=== PATIENT | female | born 1980 | race Caucasian/White ===

== ENCOUNTER → 2018-06-14 09:27 | Outpatient (CLI) | payer OTHER, SELFPAY ==
[2018-06-14 10:38] LABS: Basophils % 0.6 % (0.1-2.0); Eosinophils # 0.2 K/mm3 (0.0-0.4); Eosinophils % 3.2 % (0.1-12.0); Hematocrit 40.8 % (37.0-47.0); Hemoglobin 13.8 g/dL (12.2-16.2); Lymphocytes # 1.1 K/mm3 (0.7-4.5); Lymphocytes % 21.4 K/mm3 (10-50); Mean Corpuscular HGB Conc 33.9 g/dL (31.8-35.4); Mean Corpuscular Hemoglobin 29.4 pg (27.0-31.2); Mean Corpuscular Volume 86.6 fl (81-99); Monocytes # 0.2 K/mm3 (0.1-1.0); Neutrophils # 3.8 K/mm3 (1.8-7.8); Neutrophils % 70.9 % (37.0-80.0); Platelet Count 235 K/mm3 (142-424); Red Blood Count 4.71 M/mm3 (4.20-5.40); Red Cell Distribution Width 12.7 % (11.5-17.5); White Blood Count 5.3 K/mm3 (4.8-10.8)
[2018-06-14 11:19] LABS: Alanine Aminotransferase 25 U/L (12-78); Albumin Level 3.6 gm/dL (3.4-5.0); Albumin/Globulin Ratio 1.1 (1.1-1.8); Alkaline Phosphatase 196 U/L (46-116); Anion Gap 8.9 mEq/L (5-15); Aspartate Amino Transferase 12 U/L (15-37); Bilirubin,Total 0.3 mg/dL (0.2-1.0); Blood Urea Nitrogen 7 mg/dL (7-18); Calcium 8.7 mg/dL (8.5-10.1); Carbon Dioxide 33 mmol/L (21.0-32.0); Chloride 104 mmol/L (98-107); Creatinine,Serum 0.74 mg/dL (0.55-1.02); Estimated Glomerular Filt Rate 87 ml/min (>60); GFR (African American) 106 ML/MIN (>60); Globulin 3.2 gm/dl (1.3-3.2); Glucose 114 mg/dL (74-106); Potassium 3.9 mmoL/L (3.5-5.1); Sodium 142 mmol/L (136-145); Total Protein,Serum 6.8 gm/dL (6.4-8.2)
== END ==
PROVIDERS: PCP Nurse Practitioner Family; Visit Provider Obstetrics & Gynecology
DX: D64.9 Anemia, unspecified (principal)
CPT/HCPCS: 36415; 80053; 85025

== ENCOUNTER → 2018-07-15 09:33 | Outpatient (CLI) | payer OTHER, SELFPAY ==
--- NOTE | 2018-07-15 09:41 | CT_ITS ---
CT abdomen pelvis wo/w con CLINICAL INDICATION: Abdominal wall hernia ITS.REASON: hernia ORDERING PHYSICIAN: Lenin Awan MD PATIENT AGE: 38 years COMPARISON: None TECHNIQUE: Axial images obtained without and with IV contrast with sagittal and coronal reformats. All CT scans at the facility use one or more dose reduction, viz: automated exposure control, ma/kV adjustment per patient size (including targeted exams where dose is matched to indication, i.e. head), or iterative reconstruction technique. PROCEDURE: Oral Contrast: None IV Contrast: 75 mL of Isovue-370. FINDINGS: Lung bases are clear. Small hiatal hernia. 5 mm isodensity right hepatic lobe laterally and may be due to small cyst. 1.5 x 1.3 cm isodensity in the region of the falciform ligament and could be due to small cyst or focal fatty infiltration. The spleen, adrenal glands, pancreas, and kidneys have an unremarkable appearance without and with contrast. No radio opaque gallstones. There is a small lymph node posterior to the portal vein at 1 x 0.6 cm. Small ventral abdominal wall hernia is present containing fat. This is 2.9 cm above the umbilicus and just to the right of midline. The opening of the hernia measures 2 cm with the hernia sac measures 4.6 x 4 cm. No evidence of appendicitis, intestinal obstruction, free air, or diverticulitis. No pelvic mass abnormal fluid collection or focal inflammatory changes evident within the pelvis No acute bony anomalies. Small sclerotic focus is present in the left ilium centrally and may be due to a small bone island IMPRESSION: 1. Small ventral abdominal wall hernia containing fat as described above 2.9 cm superior to the umbilicus 2. Possible hepatic cysts which may be confirmed with ultrasound if clinically warranted
== END ==
PROVIDERS: Visit Provider Obstetrics & Gynecology
DX: K43.9 Ventral hernia without obstruction or gangrene (principal)
CPT/HCPCS: 74170; 74178; Q9967

== ENCOUNTER → 2018-08-05 10:09 | Outpatient (CLI) | payer OTHER, SELFPAY ==
[2018-08-05 10:13] LABS: Microscopic, Urine URINE MICROSCOPIC (MICROSCOPIC)
[2018-08-05 10:50] LABS: Appearance,Urine CLEAR (Clear); Bilirubin,Urine Negative (Negative); Blood, Urine Negative (Negative); Color,Urine YELLOW (Yellow); Glucose,Urine (UA) Negative (Negative); Ketones,Urine Negative (Negative); Leukocyte Esterase,Urine Negative (Negative); Nitrate,Urine Negative (Negative); Protein,Urine Negative (Negative); Urobilinogen,Urine 0.2 EU/dl (0.2)
[2018-08-05 10:52] LABS: Urine Pregnancy, HCG Qual. Negative (Negative)
[2018-08-05 10:58] LABS: Bacteria,Urine 1+ /lpf; WBC,Urine Occasional #/hpf (0-3)
[2018-08-05 11:31] LABS: Alanine Aminotransferase 23 U/L (12-78); Albumin Level 3.6 gm/dL (3.4-5.0); Alkaline Phosphatase 200 U/L (46-116); Anion Gap 10.1 mEq/L (5-15); Aspartate Amino Transferase 13 U/L (15-37); Bilirubin,Total 0.4 mg/dL (0.2-1.0); Blood Urea Nitrogen 8 mg/dL (7-18); Carbon Dioxide 32 mmol/L (21.0-32.0); Chloride 101 mmol/L (98-107); Creatinine,Serum 0.73 mg/dL (0.55-1.02); Estimated Glomerular Filt Rate 89 ml/min (>60); GFR (African American) 107 ML/MIN (>60); Globulin 3.5 gm/dl (1.3-3.2); Glucose 120 mg/dL (74-106); Potassium 4.1 mmoL/L (3.5-5.1); Sodium 139 mmol/L (136-145); Total Protein,Serum 7.1 gm/dL (6.4-8.2)
[2018-08-05 11:46] LABS: Basophils % 0.6 % (0.1-2.0); Eosinophils # 0.2 K/mm3 (0.0-0.4); Eosinophils % 2.3 % (0.1-12.0); Hematocrit 46.7 % (37.0-47.0); Hemoglobin 14.9 g/dL (12.2-16.2); Lymphocytes # 1.2 K/mm3 (0.7-4.5); Lymphocytes % 16.2 K/mm3 (10-50); Mean Corpuscular HGB Conc 31.9 g/dL (31.8-35.4); Mean Corpuscular Hemoglobin 28.3 pg (27.0-31.2); Mean Corpuscular Volume 88.6 fl (81-99); Mean Platelet Volume 7.1 fl (7.4-10.4); Monocytes # 0.2 K/mm3 (0.1-1.0); Neutrophils # 5.9 K/mm3 (1.8-7.8); Neutrophils % 77.9 % (37.0-80.0); Platelet Count 296 K/mm3 (142-424); Red Blood Count 5.27 M/mm3 (4.20-5.40); Red Cell Distribution Width 12.9 % (11.5-17.5); White Blood Count 7.6 K/mm3 (4.8-10.8)
== END ==
PROVIDERS: Visit Provider Obstetrics & Gynecology
DX: Z01.818 Encounter for other preprocedural examination (principal); Z30.2 Encounter for sterilization
CPT/HCPCS: 36415; 80053; 81001; 81025; 85025

== ENCOUNTER → 2018-11-18 12:03 | Outpatient (CLI) | payer OTHER, SELFPAY ==
[2018-11-18 12:45] LABS: Basophils % 0.5 % (0.1-2.0); Eosinophils # 0.2 K/mm3 (0.0-0.4); Eosinophils % 2.5 % (0.1-12.0); Hematocrit 40.7 % (37.0-47.0); Hemoglobin 13.4 g/dL (12.2-16.2); Lymphocytes # 1.1 K/mm3 (0.7-4.5); Lymphocytes % 17.2 % (10-50); Mean Corpuscular HGB Conc 32.9 g/dL (31.8-35.4); Mean Corpuscular Hemoglobin 28.7 pg (27.0-31.2); Mean Corpuscular Volume 87.2 fl (81-99); Mean Platelet Volume 6.9 fl (7.4-10.4); Monocytes # 0.2 K/mm3 (0.1-1.0); Neutrophils % 76.8 % (37.0-80.0); Platelet Count 222 K/mm3 (142-424); Red Blood Count 4.67 M/mm3 (4.20-5.40); Red Cell Distribution Width 13.4 % (11.5-17.5); White Blood Count 6.5 K/mm3 (4.8-10.8)
[2018-11-18 13:11] LABS: Anion Gap 11.1 mEq/L (5-15); Blood Urea Nitrogen 7 mg/dL (7-18); Calcium 9.2 mg/dL (8.5-10.1); Carbon Dioxide 31 mmol/L (21.0-32.0); Chloride 102 mmol/L (98-107); Creatinine,Serum 0.76 mg/dL (0.55-1.02); Estimated Glomerular Filt Rate 85 ml/min (>60); GFR (African American) 103 ML/MIN (>60); Glucose 113 mg/dL (74-106); Potassium 4.1 mmoL/L (3.5-5.1); Sodium 140 mmol/L (136-145)
== END ==
PROVIDERS: Visit Provider Surgery
DX: K46.9 Unspecified abdominal hernia without obstruction or gangrene (principal)
CPT/HCPCS: 36415; 80048; 85025

== ENCOUNTER 2018-11-20 06:12 | Day surgery (SDC) | payer OTHER, SELFPAY ==
[2018-11-19 11:09] VITALS: BMI 38.1
[2018-11-19 11:36] LABS: HCG Qualitative, Serum Negative (Negative)
[2018-11-20] VITALS (16 sets, daily range): BP systolic 126–142; BP diastolic 60–105; PULSE 61–88; RESP 16–18; TEMP 36.2–43; O2SAT 93–97
--- NOTE | 2018-11-20 07:02 | P.PN_ITS ---
[facility] Anesthesia Checklist - Patient Identification Patient Identification: Arm Band, Verbal (Name & ) - Structural Data Admitted From: Home Planned Operative Procedure/s: vent hernia Consent for Planned Operative Procedure(s) Verified: Yes Verified Documents: History and Physical - NPO Status Verified Time NPO: 00:00 - Additional verifications Patient : No Anesthesia Reactions: No Hx Blood Transfusions: No Blood Transfusion Reaction: No Cephalosporin Allergy: No Previous Colonoscopy: No - Cardiovascular Assessment Heart Sounds: S1 & S2 Pulse Strength: Baseline Pulse Rhythm: Regular Peripheral Edema: No - Airway Assessment C-Spine Mobility Assessed: Yes TMJ Mobility Assessed: Yes Dentition: Good Dentition - Neurological Assessment Level of Consciousness: Awake, Alert, Appropriate Hx Seizures: No Numbness or tingling in extremities: No - Anesthesia Plan Anesthesia Risk discussed: Yes Anesthesia Plan: Verified ASA Class: II Anesthesia Type: General [facility] History I have reviewed the patient's past medical history: Yes Medical History: Denies:: Cancer, Diabetes Mellitus Type 1, Diabetes Mellitus Type 2, Internal Pacemaker, MRSA, Seizures *Have you ever received a pneumonia vaccine?: No *Have you received a flu vaccine this season?: No Other Medical History: Reports: Other. Denies: Blood Transfusion Reaction Other Surgeries: Yes: Tubal Ligation, Other. No: Pacemaker Amputation: No Fractures: No - *Social History Educational Level: Completed High School Smoking Status: Never smoker Alcohol Intake: never Substance Use Type: opiates, prescription drug Last Used Substance: unknown *Occupational Status:: unemployed Housing: house Household Members: significant other *Travel in the last 8 weeks: None - Psychiatric History Expresses thoughts of harming self/others: None Suicide Plan Description: No Plan Family Hx:: Stroke, Hypertension
--- NOTE | 2018-11-20 09:03 | HMH.OPNOTE ---
Date of procedure: 11/20/18 Pre-op Diagnosis:: Ventral hernia Post-op Diagnosis:: Same Procedure performed:: Laparoscopic ventral hernia repair with placement of 6 inch Bard Composix mesh with echo positioning system Surgeon:: Gurpreet Hylton MD SHOE STITCHER ODD:: Carson Mclean Anesthesia: GETLizzy Estimated blood loss (mL): 15 Clinical Note:: Patient is a 38-year-old female whom I had seen in the office as a referral from Dr. Awan on 07/26/18 for supraumbilical ventral hernia. Consideration was being given for possible laparoscopic tubal ligation with combined hernia repair. Patient had been and delivered in May 2017. After that she had noticed a bulge above her umbilical area which had been present for about a year when I saw her in July 2018. She did have a CT scan performed which revealed a hernia 2-1/2 cm above the umbilical area with a defect measuring 2.9 cm with a larger hernia sac. She did undergo laparoscopic bilateral tubal ligation on 08/08/18. She has not undergone repair of the hernia. She states that it may have increased somewhat in size. She does describe some occasional nausea. 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 Operative findings:: Patient had approximately a 3 cm defect containing some fatty tissues of the omentum which was easily released. Falciform ligament was also within the hernia defect. He does have some surrounding rectus diastases as well. Operative note:: Consent was obtained and patient was taken to the operating room. She was given preoperative intravenous antibiotics. She was placed in a supine position. General anesthesia was induced via endotracheal tube. Abdomen was prepped and draped in the standard surgical fashion. Left subcostal incision was made and 5 mm optical trocar was inserted under laparoscopic visualization. CO2 pneumoperitoneum was then achieved to 15 mmHg. Intra-abdominal surveillance was carried out. She had omentum within the hernia sac immediately superior to the umbilicus. Additional 5 mm trochars were inserted in the left lower abdomen, lower abdomen. And a 11 mm trocar was inserted in the right upper abdomen. Omentum within the hernia defect was easily reduced. Falciform ligament was herniated as well. There was some fatty tissues adherent to the peritoneum and these were dissected free using KEYON ultrasonic harmonic marion. This was removed from the peritoneal cavity after placement and a Endo Catch retrieval bag and sent as hernia contents. The falciform ligament was divided and dissected free down to the liver as well to allow for placement and this was sent along with hernia contents after removal by being placed within an Endo Catch retrieval device. Overall size of the defect measured about 3 cm but there was some surrounding rectus diastases as well. A 6 inch Bard Composix mesh was brought onto the field. It was rolled and inserted into the peritoneal cavity. The positioning system insufflation tubing was brought through a very small 1 mm incision centrally at the umbilicus. Positioning system tubing was cut to the appropriate length and inflated to position of the mesh with generous overlap around fascial edges. Several absorbitac tacks were placed in 4 corners to position the mesh. The balloon positioning system was then removed there was inflated. Mesh was then secured around its periphery with multiple absorbitac. Repair appeared adequate with good overlap of the fascia. There was good hemostasis. Trochars were then removed as CO2 pneumoperitoneum was evacuated. Anterior fascia at the 11 mm trocar was closed with a 0 Vicryl suture. Local anesthetic was infiltrated in all incisions. Skin incisions were closed with 4-0 Monocryl. Steri-Strips and dressings were applied. Condition: stable Disposition: PACU Specimens:: Hernia contents Complications:: None immediately apparent
--- NOTE | 2018-11-20 09:08 | HMH.ANESI ---
[facility] Anesthesia Record Part I Intake, IV Amount: 1,600 Estimated blood loss (mL): 10 Urine output (mL): 100 Blood Pressure: 138/105 SaO2: 95 Pulse Rate: 64 Respiratory Rate: 16 Temperature: 98.3 F Patient is:: Drowsy, Stable Stable to PACU at:: 09:05
--- NOTE | 2018-11-20 09:09 | P.PN_ITS ---
[facility] Anesthesia Record Part II Discharge Time: 09:35 Destination: [facility] PACU nurse assessment reviewed?: Yes Patient Condition:: Good Anesthesia Complications:: None Swallowing reflex intact?: Yes Cyanosis?: No
--- NOTE | 2018-11-20 09:09 | HMH.ANESII ---
[facility] Anesthesia Record Part II Discharge Time: 09:35 Destination: [facility] PACU nurse assessment reviewed?: Yes Patient Condition:: Good Anesthesia Complications:: None Swallowing reflex intact?: Yes Cyanosis?: No
--- NOTE | 2018-11-20 10:12 | SUR.PHASEII ---
DR RIVAS CALLED REPORT GIVEN. PT REQUESTING SOMETHING FOR PAIN. PT RECEIVED TYLENOL 1000MG IN PREOP, DEMEROL, AND ZOFRAN IN PACU. PT'S PRESCRIPTION IS FOR NORCO. PT REPORTS NORCO MAKES HER NAUSEATED. PT RATING PAIN 9 IN ABD. ORDERS RECEIVED DILAUDID 1MG IV ONE TIME DOSE NOW. R/V MD WILL CHANGE PRESCRIPTION FROM NORCO TO PERCOCET.
[2018-11-20 14:32] LABS: Microscopic,Cath URINE MICROSCOPIC (MICROSCOPIC)
--- NOTE | 2018-11-20 14:36 | PC.NURSE ---
0945 pt c/o nausea. 4mg zofran given iv.
[2018-11-20 15:56] LABS: Appearance,Urine/Cath CLEAR (Clear); Bilirubin,Cath Negative (Negative); Blood, Urine/Cath Negative (Negative); Color,Urine/Cath YELLOW (Yellow); Glucose,Urine/Cath (UA) Negative (Negative); Ketones,Urine/Cath Negative (Negative); Leukocyte Esterase,Cath Negative (Negative); Nitrate,Cath Negative (Negative); PH,Urine/Cath 8.5 (5.0-8.5); Protein,Urine/Cath Negative (Negative); Specific Gravity, Urine/Cath 1.015 (1.005-1.030); Urobilinogen,Cath 0.2 EU/dl (0.2)
[2018-11-20 16:12] LABS: Bacteria,Urine/Cath TRACE /lpf; Mucus,Urine/Cath Trace /lpf; Squamous Epithelial Ur./Cath Occasional #/hpf (0-5); WBC,Urine/Cath Occasional #/hpf (0-3)
== END 2018-11-20 11:53 | disposition home or self-care (01) ==
LOC: OR 06:13
PROVIDERS: Visit Provider Surgery
PROC: 0WQF4ZZ Repair Abdominal Wall, Percutaneous Endoscopic Approach (ICD-10-PCS; CPT 49652; principal; 2018-11-20 07:30)
DX: K43.9 Ventral hernia without obstruction or gangrene (principal)
CPT/HCPCS: 49652; 81001; 84703; 96374; C1781; J2405; J2710

== ENCOUNTER → 2021-03-29 10:45 | Outpatient (CLI) | payer OTHER, SELFPAY ==
[2021-03-29 11:24] LABS: Basophils % 0.5 % (0.1-2.0); Eosinophils # 0.2 K/mm3 (0.0-0.4); Eosinophils % 2.9 % (0.1-12.0); Hematocrit 39.8 % (37.0-47.0); Hemoglobin 14.4 g/dL (12.2-16.2); Lymphocytes # 1.4 K/mm3 (0.7-4.5); Lymphocytes % 17.2 % (10-50); Mean Corpuscular HGB Conc 36.3 g/dL (31.8-35.4); Mean Corpuscular Volume 85.5 fl (81-99); Mean Platelet Volume 7.3 fl (7.4-10.4); Monocytes # 0.5 K/mm3 (0.1-1.0); Monocytes % 6.6 % (1.7-9.3); Neutrophils # 5.8 K/mm3 (1.8-7.8); Neutrophils % 72.7 % (37.0-80.0); Platelet Count 229 K/mm3 (142-424); Red Blood Count 4.65 M/mm3 (4.20-5.40); Red Cell Distribution Width 13.6 % (11.5-17.5); White Blood Count 7.9 K/mm3 (4.8-10.8)
[2021-03-29 11:39] LABS: Chloride 101 mmol/L (98-107); Potassium 3.8 mmoL/L (3.5-5.1); Sodium 138 mmol/L (136-145)
[2021-03-29 11:41] LABS: Blood Urea Nitrogen 6 mg/dl (7-17); Estimated Glomerular Filt Rate 110 ml/min (>60); GFR (African American) 133 ML/MIN (>60)
[2021-03-29 11:42] LABS: Alanine Aminotransferase 25 U/L (12-78); Albumin Level 4.3 g/dl (3.5-5.0); Albumin/Globulin Ratio 1.5 (1.1-1.8); Alkaline Phosphatase 146 U/L (38-126); Anion Gap 15.8 mEq/L (5-15); Aspartate Amino Transferase 37 U/L (14-36); Bilirubin,Total 0.7 mg/dl (0.2-1.3); Calcium 8.6 mg/dl (8.4-10.2); Carbon Dioxide 25 mmol/L (22.0-30.0); Globulin 2.8 g/dL (1.3-3.2); Glucose 222 mg/dl (74-100); Total Protein,Serum 7.1 g/dl (6.3-8.2)
[2021-03-30 13:11] LABS: Rapid Plasma Reagin Ab Titer Non Reactive (NonRea<1:1)
[2021-04-07 10:17] LABS: Miscellaneous Test 765
== END ==
PROVIDERS: Visit Provider Nurse Practitioner Family
DX: Z00.00 Encounter for general adult medical examination without abnormal findings (principal); F11.11 Opioid abuse, in remission
CPT/HCPCS: 36415; 80053; 85025; 86592

== ENCOUNTER → 2022-05-09 07:14 | Outpatient (CLI) | payer OTHER, SELFPAY ==
[2022-05-09 19:12] LABS: Chloride 104 mmol/L (98-107)
[2022-05-09 19:13] LABS: Basophils % 0.7 % (0.1-2.0); Eosinophils # 0.2 K/mm3 (0.0-0.4); Eosinophils % 4.1 % (0.1-12.0); Hematocrit 41.6 % (37.0-47.0); Hemoglobin 13.7 g/dL (12.2-16.2); Lymphocytes # 1.1 K/mm3 (0.7-4.5); Lymphocytes % 19.9 % (10-50); Mean Corpuscular HGB Conc 32.8 g/dL (31.8-35.4); Mean Corpuscular Hemoglobin 30.6 pg (27.0-31.2); Mean Corpuscular Volume 93.2 fl (81-99); Mean Platelet Volume 9.5 fl (7.4-10.4); Monocytes # 0.2 K/mm3 (0.1-1.0); Monocytes % 3.6 % (1.7-9.3); Neutrophils % 71.6 % (37.0-80.0); Platelet Count 284 K/mm3 (142-424); Red Blood Count 4.46 M/mm3 (4.20-5.40); Red Cell Distribution Width 13.8 % (11.5-17.5); White Blood Count 5.6 K/mm3 (4.8-10.8)
[2022-05-09 19:14] LABS: Potassium 3.7 mmoL/L (3.5-5.1); Sodium 137 mmol/L (136-145)
[2022-05-09 19:15] LABS: Alanine Aminotransferase 27 U/L (12-78); Albumin Level 3.9 g/dl (3.5-5.0); Albumin/Globulin Ratio 1.5 (1.1-1.8); Alkaline Phosphatase 182 U/L (38-126); Aspartate Amino Transferase 38 U/L (14-36); Blood Urea Nitrogen 5 mg/dl (7-17); Cholesterol 128 mg/dl (140-200); Estimated Glomerular Filt Rate 110 ml/min (>60); GFR (African American) 133 ML/MIN (>60); Globulin 2.6 g/dL (1.3-3.2); Total Protein,Serum 6.5 g/dl (6.3-8.2); Triglycerides 357 mg/dl (30-150); VLDL Cholesterol 71 mg/dL (0-40)
[2022-05-09 19:16] LABS: Calcium 8.9 mg/dl (8.4-10.2); Glucose 216 mg/dl (74-100)
[2022-05-09 19:17] LABS: Chol/HDL Ratio 5.1 (1-3.5); HDL Cholesterol 25 mg/dl (40-60)
[2022-05-09 19:46] LABS: Bilirubin,Total 0.1 mg/dl (0.2-1.3); Hemoglobin A1C 6.2 % (4.0-6.0); Thyroid Stimulating Hormone 1.58 uIU/mL (0.465-4.68)
[2022-05-09 19:49] LABS: Anion Gap 10.7 mEq/L (5-15); Carbon Dioxide 26 mmol/L (22.0-30.0)
[2022-05-09 22:14] LABS: Free T4 (Free Thyroxine) 0.94 ng/dl (0.78-2.19)
[2022-05-11 09:39] LABS: Direct LDL Cholesterol 54 mg/dL (100-129)
== END ==
PROVIDERS: PCP Emergency Medicine; Visit Provider Emergency Medicine
DX: R53.83 Other fatigue (principal); E55.9 Vitamin D deficiency, unspecified; Z79.899 Other long term (current) drug therapy
CPT/HCPCS: 80053; 80061; 82306; 83036; 84439; 84443; 85025

== ENCOUNTER → 2022-05-25 12:05 | Outpatient (CLI) | payer OTHER, SELFPAY ==
[2022-05-27 21:14] LABS: Hep A Ab, IgM Negative; Hepatitis B Core Antibody IgM Negative; Hepatitis B Surface Antigen Negative; Hepatitis C Antibody <0.1
== END ==
PROVIDERS: PCP Emergency Medicine; Visit Provider Emergency Medicine
DX: R74.8 Abnormal levels of other serum enzymes (principal)
CPT/HCPCS: 36415; 80074

== ENCOUNTER 2024-07-11 10:15 | Outpatient (CLI) | payer OTHER, SELFPAY ==
[2024-07-11 18:25] LABS: Basophils # 0.1 K/mm3 (0-0.2); Basophils % 0.9 % (0.1-2.0); Eosinophils # 0.2 K/mm3 (0.0-0.4); Eosinophils % 2.8 % (0.1-12.0); Hemoglobin 15.8 g/dL (12.2-16.2); Lymphocytes # 1.1 K/mm3 (0.7-4.5); Lymphocytes % 19.8 % (10-50); Mean Corpuscular HGB Conc 34.2 g/dL (31.8-35.4); Mean Corpuscular Hemoglobin 30.2 pg (27.0-31.2); Mean Corpuscular Volume 88.3 fl (81-99); Mean Platelet Volume 8.9 fl (7.4-10.4); Monocytes # 0.2 K/mm3 (0.1-1.0); Monocytes % 4.3 % (1.7-9.3); Neutrophils # 4.1 K/mm3 (1.8-7.8); Neutrophils % 72.3 % (37.0-80.0); Platelet Count 232 K/mm3 (142-424); Red Blood Count 5.21 M/mm3 (4.20-5.40); Red Cell Distribution Width 13.8 % (11.5-17.5); White Blood Count 5.7 K/mm3 (4.8-10.8)
[2024-07-11 18:28] LABS: Alanine Aminotransferase 29 U/L (12-78); Albumin Level 4.5 g/dl (3.5-5.0); Albumin/Globulin Ratio 1.7 (1.1-1.8); Alkaline Phosphatase 259 U/L (38-126); Anion Gap 8.9 mEq/L (5-15); Aspartate Amino Transferase 35 U/L (14-36); Bilirubin,Total 0.7 mg/dl (0.2-1.3); Blood Urea Nitrogen 12 mg/dl (7-17); Calcium 9.3 mg/dl (8.4-10.2); Carbon Dioxide 28 mmol/L (22.0-30.0); Chloride 99 mmol/L (98-107); Chol/HDL Ratio 4.9 (1-3.5); Cholesterol 166 mg/dl (140-200); Estimated Glomerular Filt Rate 133 ml/min (>60); GFR (African American) 161 ML/MIN (>60); Globulin 2.7 g/dL (1.3-3.2); Glucose 375 mg/dl (74-100); HDL Cholesterol 34 mg/dl (40-60); Potassium 3.9 mmoL/L (3.5-5.1); Sodium 132 mmol/L (136-145); Total Protein,Serum 7.2 g/dl (6.3-8.2); Triglycerides 265 mg/dl (30-150); VLDL Cholesterol 53 mg/dL (0-40)
[2024-07-11 18:36] LABS: HIV (1&2) Antibody Rapid NONREACTIVE (NONREACTIVE)
[2024-07-11 18:40] LABS: Direct LDL Cholesterol 86.82 mg/dL (100-129)
[2024-07-11 18:45] LABS: 25-OH Vitamin D, Total 31.6 ng/mL (30-100)
[2024-07-11 20:05] LABS: Thyroid Stimulating Hormone 2.31 uIU/mL (0.465-4.68)
[2024-07-13 09:09] LABS: HCV Ab Non Reactive (Non Reactive)
== END 2024-07-11 23:59 | disposition home or self-care (01) ==
LOC: LAB.DROPOF 07-12 10:13
PROVIDERS: PCP Family Medicine; Visit Provider Family Medicine
DX: Z00.00 Encounter for general adult medical examination without abnormal findings (principal); Z11.4 Encounter for screening for human immunodeficiency virus [HIV]; Z11.59 Encounter for screening for other viral diseases; E55.9 Vitamin D deficiency, unspecified
CPT/HCPCS: 80050; 80053; 80061; 82306; 83036; 84443; 85025; 86803; 87389

== ENCOUNTER 2024-07-24 12:03 | Outpatient (CLI) | payer OTHER, SELFPAY ==
[2024-07-24 13:50] VITALS: BMI 35.9
== END 2024-07-24 23:59 | disposition home or self-care (01) ==
LOC: DIETICIAN 12:04
PROVIDERS: PCP Family Medicine; Visit Provider Family Medicine
DX: E11.9 Type 2 diabetes mellitus without complications (principal)
CPT/HCPCS: 97802

== ENCOUNTER 2024-07-30 12:56 | Outpatient (CLI) | payer OTHER, SELFPAY ==
--- NOTE | 2024-07-30 12:56 | MM_ITS ---
PROCEDURE INFORMATION: Exam: MG Bilateral Screening 3D Mammography Exam date and time: 07/30/2024 12:57 PM Age: 44 years old Clinical indication: Screening exam. TECHNIQUE: Imaging protocol: Bilateral Screening tomosynthesis and 2D mammography including computer-aided detection (CAD) when performed. COMPARISON: No relevant prior studies available. FINDINGS: MAMMOGRAPHY: Breast composition: There are scattered areas of fibroglandular density. Mass: No suspicious masses. Architectural distortion: None. Calcifications: No suspicious calcifications. Asymmetric density: None. Skin thickening: None. Axillary adenopathy: None. IMPRESSION: No mammographic evidence of malignancy. Annual screening is recommended unless otherwise clinically indicated. ASSESSMENT: BI-RADS Category 1: Negative.
--- NOTE | 2024-07-30 13:01 | US_ITS ---
PROCEDURE: US TRANSVAGINAL CLINICAL INDICATION: Pelvic Pain COMPARISON: No exams were available for comparison FINDINGS: Transvaginal sonographic images of the pelvis were obtained. UTERUS: 8.5cm x 5.7 cmx 5.4cm anteverted with a combined endometrial thickness of 9.5mm. There is an anterior fibroid measuring 2.5 cm x 1.9 cm x 1.5 cm. There are calcifications within the fibroid and posterior shadowing. LEFT OVARY: 2.2cmx1.9 cmx2.7cm with a volume of 5.8ml. There is a follicle on the left ovary measuring 1.3 cm x 1.7 cm x 1.3 cm. RIGHT OVARY: 1.5 cmx 1.2cmx1.2cm with a volume of 1.2ml. Both ovaries are seen and appear normal. Doppler flow to both ovaries are seen. There is no fluid in the cul-de-sac. IMPRESSION: 1. Anteverted uterus normal in shape and size. The endometrium appears thickened but likely premenstrual. There is an anterior fibroid measuring 2.5 cm. 2. Both ovaries are seen and appear normal. There is a 1.7 cm follicle on the left ovary. 3. No fluid in the cul-de-sac. Dictated by: Ant Morrison MD 07/31/2024 07:50 nAt Morrison MD in OV 07/31/2024 07:50
== END 2024-07-30 23:59 | disposition home or self-care (01) ==
LOC: RAD 12:56
PROVIDERS: PCP Family Medicine; Visit Provider Family Medicine
DX: Z12.31 Encounter for screening mammogram for malignant neoplasm of breast (principal); R10.2 Pelvic and perineal pain
CPT/HCPCS: 76830; 77063; 77067

== ENCOUNTER 2025-05-06 15:45 | Outpatient (CLI) | payer OTHER, SELFPAY ==
[2025-05-06 19:32] LABS: Hematocrit 39.6 % (37.0-47.0); Hemoglobin 13.0 g/dL (12.2-16.2); Immature Granulocytes % 0.1 %; Mean Corpuscular HGB Conc 32.8 g/dL (31.8-35.4); Mean Corpuscular Hemoglobin 27.8 pg (27.0-31.2); Mean Corpuscular Volume 84.8 fl (81-99); Nucleated Red Blood Cells % 0 %; Platelet Count 246 K/mm3 (142-424); Red Blood Count 4.67 M/mm3 (4.20-5.40); Red Cell Distribution Width-SD 37.7 fL; White Blood Count 7.4 K/mm3 (4.8-10.8)
[2025-05-06 19:57] LABS: Albumin Level 4.4 g/dl (3.5-5.0); Chloride 99 mmol/L (98-107); Potassium 4.3 mmoL/L (3.5-5.1); Sodium 133 mmol/L (136-145)
[2025-05-06 19:59] LABS: Alanine Aminotransferase 16 U/L (12-78); Blood Urea Nitrogen 10 mg/dl (7-17); Creatinine,Serum 0.50 mg/dl (0.52-1.04); Estimated Glomerular Filt Rate 133 ml/min (>60); GFR (African American) 161 ML/MIN (>60)
[2025-05-06 20:00] LABS: Albumin/Globulin Ratio 1.9 (1.1-1.8); Alkaline Phosphatase 184 U/L (38-126); Anion Gap 12.3 mEq/L (5-15); Aspartate Amino Transferase 21 U/L (14-36); Bilirubin,Total 0.4 mg/dl (0.2-1.3); Calcium 9.1 mg/dl (8.4-10.2); Carbon Dioxide 26 mmol/L (22.0-30.0); Cholesterol 118 mg/dl (140-200); Globulin 2.3 g/dL (1.3-3.2); Glucose 176 mg/dl (74-100); HDL Cholesterol 36 mg/dl (40-60); Total Protein,Serum 6.7 g/dl (6.3-8.2); Triglycerides 185 mg/dl (30-150)
== END 2025-05-06 23:59 | disposition home or self-care (01) ==
LOC: LAB.DROPOF 05-07 12:21
PROVIDERS: PCP Family Medicine; Visit Provider Family Medicine
DX: E11.9 Type 2 diabetes mellitus without complications (principal); I10 Essential (primary) hypertension; E66.9 Obesity, unspecified
CPT/HCPCS: 80053; 80061; 85025

== ENCOUNTER 2025-05-14 08:05 | Outpatient (CLI) | payer OTHER, SELFPAY ==
--- NOTE | 2025-05-14 08:30 | US_ITS ---
FINAL REPORT TECHNIQUE: Sonographic images of the right upper quadrant were obtained. CLINICAL HISTORY: elevated alk jazmín, abdominal pain, ruq pain COMPARISON: None FINDINGS: PANCREAS: Tail obscured, head normal. LIVER: Fatty infiltrated. Small hypoechoic lesion along the anterior left lobe of the liver is nonspecific but not a cyst. No other liver lesions identified.. No intrahepatic biliary ductal dilatation. GALLBLADDER: No gallstones. No gallbladder wall thickening or pericholecystic fluid. COMMON DUCT: 3 mm. Normal for age. RIGHT KIDNEY: The right kidney measures 9.4 cm. There is no hydronephrosis, mass, or stone. FREE FLUID: None. IMPRESSION: Fatty liver. Small hypoechoic liver lesion, nonspecific. Consider CT or MRI liver protocol. Reviewed, Interpreted and Dictated by Luz Ross MD Transcribed by Leni Hoang Authenticated and [facility]
== END 2025-05-14 23:59 | disposition home or self-care (01) ==
LOC: RAD 08:06
PROVIDERS: PCP Family Medicine; Visit Provider Family Medicine
DX: K76.0 Fatty (change of) liver, not elsewhere classified (principal); K76.89 Other specified diseases of liver; K21.9 Gastro-esophageal reflux disease without esophagitis; R10.11 Right upper quadrant pain; R74.8 Abnormal levels of other serum enzymes
CPT/HCPCS: 76705

== ENCOUNTER 2025-06-05 10:39 | Outpatient (CLI) | payer OTHER, SELFPAY ==
--- NOTE | 2025-06-05 10:45 | CT_ITS ---
FINAL REPORT TECHNIQUE: Pre- and postcontrast images of the abdomen were performed by computed tomography. Sagittal and coronal reformatted images were obtained and reviewed. This study was performed with techniques to keep radiation doses as low as reasonably achievable, (ALARA). Individualized dose reduction techniques using automated exposure control or adjustment of mA and/or kV according to the patient's size were employed. CLINICAL HISTORY: liver lesion FINDINGS: The lung bases are clear. There are 2 hypodense liver lesions. One is located in the dome of the liver measuring 13 mm. The second is located in the anterior left lobe measuring 17 mm. Neither of these lesions enhance most consistent with cysts. The gallbladder is present. The spleen is unremarkable. The adrenals are normal. The pancreas is unremarkable. The kidneys enhance appropriately. There is a small hiatal hernia. The GI tract is without acute abnormality. IMPRESSION: Two liver lesions, both of which likely represent cysts. Reviewed, Interpreted and Dictated by Luz Ross MD Transcribed by Madhavi Montano Authenticated and [facility]
[2025-06-05] MEDS: SODIUM CHLORIDE 0.9% 10ML SYR (RAD ONLY) 10 ML IV (11:17)
[2025-06-05] MEDS: IOPAMIDOL-370 (76%);100ML BOTTLE 75 ML IV (11:17)
== END 2025-06-05 23:59 | disposition home or self-care (01) ==
LOC: RAD 10:40
PROVIDERS: PCP Family Medicine; Visit Provider Family Medicine
DX: K76.89 Other specified diseases of liver (principal); K76.0 Fatty (change of) liver, not elsewhere classified; R93.5 Abnormal findings on diagnostic imaging of other abdominal regions, including retroperitoneum; R10.11 Right upper quadrant pain; R74.8 Abnormal levels of other serum enzymes
CPT/HCPCS: 74170; Q9967

== ENCOUNTER 2025-08-20 10:11 | Outpatient (CLI) | payer OTHER, SELFPAY ==
[2025-08-20 15:23] LABS: Hemoglobin A1C 7.5 % (4.0-6.0)
[2025-08-20 15:54] LABS: Alanine Aminotransferase 19 U/L (12-78); Albumin Level 4.0 g/dl (3.5-5.0); Albumin/Globulin Ratio 1.7 (1.1-1.8); Alkaline Phosphatase 216 U/L (38-126); Anion Gap 11.3 mEq/L (5-15); Aspartate Amino Transferase 23 U/L (14-36); Bilirubin,Total 0.5 mg/dl (0.2-1.3); Blood Urea Nitrogen 11 mg/dl (7-17); Calcium 9.0 mg/dl (8.4-10.2); Carbon Dioxide 29 mmol/L (22.0-30.0); Chloride 97 mmol/L (98-107); Creatinine,Serum 0.70 mg/dl (0.52-1.04); Estimated Glomerular Filt Rate 90 ml/min (>60); GFR (African American) 109 ML/MIN (>60); Globulin 2.3 g/dL (1.3-3.2); Glucose 187 mg/dl (74-100); Potassium 4.3 mmoL/L (3.5-5.1); Sodium 133 mmol/L (136-145); Total Protein,Serum 6.3 g/dl (6.3-8.2)
[2025-08-20 16:30] LABS: Thyroid Stimulating Hormone 1.05 uIU/mL (0.465-4.68)
== END 2025-08-20 23:59 ==
LOC: LAB.DROPOF 08-24 10:16
PROVIDERS: PCP Student in an Organized Health Care Education/Training Program; Visit Provider Family Medicine
DX: I10 Essential (primary) hypertension (principal); E11.9 Type 2 diabetes mellitus without complications; E66.9 Obesity, unspecified
CPT/HCPCS: 80053; 83036; 84443